=== PATIENT | female | born 1960 | race Caucasian/White ===

== ENCOUNTER 2017-01-14 18:41 | Emergency (ER) | payer OTHER ==
[~2017-01-14] VITALS: Ht 162.6 cm; Wt 103.0 kg
[~2017-01-14 18:41] MED LIST: D-ME473S18 PO; IBUP-1542 PO
[2017-01-14 18:43] VITALS: Ht 162.6 cm; Wt 103.0 kg
[2017-01-14] MEDS ORDERED: PROM5SYR2 PO (19:32)
[2017-01-14] MEDS ORDERED: AZIT250T94 PO (19:32)
--- NOTE | 2017-01-14 19:34 | ERD ---
ER Documentation Chief Complaint Date/Time DATE: 01/14/17 TIME: 19:32 Chief Complaint cough x 1 week, sore throat x 2 days HPI This is a 56-year-old female who presents with cough that she has had for 1 week. The cough is worse at night and is associated with some yellow to clear colored phlegm. She also admits to sore throat. She thinks he may have had a fever but she has not taken her temperature. She denies any nausea vomiting. Denies any chest pain or shortness of breath. She has tried pvit-aaf-wwenbri medications which did not help. ROS All systems reviewed and are negative except as per history of present illness. Medications Home Meds Active Scripts Promethazine HCl/Codeine (Prometh-Codein 6.25-10 mg/5 ml) 5 Ml Syrup, 5 ML PO QHS, #4 Prov:ESTELLA BOWEN PA-C 01/14/17 Azithromycin* (Zithromax*) 250 Mg Tablet, 250 MG PO .ZPACK DIRECTED, #6 TAB TAKE 500 MG (2 TABS) THE FIRST DAY THEN 250 MG (1 TAB) DAYS 2-5 Prov:ESTELLA BOWEN PA-C 01/14/17 Dextromethorphan Hb-Promethazine Hcl (Promethazine DM Syrup) 473 Ml Syrup, 5 ML PO Q6 Y for COUGH for 5 Days, ML Prov:VENKATA ZAMUDIO MD 07/04/16 Ibuprofen* (Motrin*) 600 Mg Tab, 600 MG PO Q6, #15 TAB Prov:VENKATA ZAMUDIO MD 07/04/16 Allergies Allergies: Coded Allergies: No Known Allergy (Unverified , 11/09/13) PMhx/Soc Medical and Surgical Hx: pt denies Medical Hx History of Surgery: Yes (RT SHOULDER) Anesthesia Reaction: No Hx Neurological Disorder: No Hx Respiratory Disorders: No Hx Cardiac Disorders: No Hx Psychiatric Problems: No Hx Miscellaneous Medical Probl: No Hx Alcohol Use: No Hx Substance Use: No Hx Tobacco Use: No Smoking Status: Never smoker FmHx Family History: No diabetes Physical Exam Vitals Vital Signs Date Time Temp Pulse Resp B/P Pulse Ox O2 Delivery O2 Flow Rate FiO2 01/14/17 18:43 98.6 99 20 132/85 98 Physical Exam General: well developed, well nourished, alert, nontoxic, no distress Head: normocephalic, atraumatic Eyes: PERRL, normal conjunctiva Neck: Supple, nontender, no lymphadenopathy, no midline tenderness Oropharynx: no tonsilar erythema or edema, uvula midline, no exudates, no kissing tonsils, no drooling Respiratory: Clear to auscaultation bilaterally, speaks in full sentences, no use of accesory muscles or labored breathing, no rales, ronchi, or wheezing Cardiovascular: RRR, No murmurs GI: soft, non tender, non distended, negative murphys sign Back: no midline tenderness, no step offs or bony abnormalities, sensation to light touch in tact Procedures/MDM Patient presents with cough and congestion for the past week. Her vitals are normal she is afebrile well-appearing. Her lungs are clear. I doubt she has pneumonia. She has tried dwzw-dly-ybggohi medication without relief. Discharge her with azithromycin and cough suppressant. Recommended this patient follow up with her primary care doctor within 48 hours or return to the emergency room for any worsening of symptoms. However this time I do believe there is suitable for outpatient management. I answered all their questions and they agreed with the plan and were discharged home. Departure Diagnosis: Primary Impression: Bronchitis Condition: Stable Patient Instructions: Bronchitis, Antiobiotic Treatment (Adult) Additional Instructions: Llame al doctor PEG y marisol delfino KATHLEEN PARA DENTRO DE 1-2 SAEZ.Dgale a la secretaria que nosotros le instruimos hacer esta kathleen.Avise o llame si porter condicin se empeora antes de la kathleen. Regresa aqui si peor o no mejor. ESTELLA BOWEN PA-C Jan 14, 2017 19:34
== END 2017-01-14 19:40 | disposition home or self-care (01) ==
LOC: FTE 18:41
DX: J20.9 Acute bronchitis, unspecified (principal)
CPT/HCPCS: 99284

== ENCOUNTER 2018-09-28 10:22 | Emergency (ER) | payer OTHER ==
[~2018-09-28] VITALS: Wt 94.2 kg
[~2018-09-28 10:22] MED LIST changes: +AZIT250T PO; +PROM5SYR2 PO
[2018-09-28] MEDS ORDERED: MECLIZINE 12.5 MG TAB PO ONE (13:30)
[2018-09-28] MEDS ORDERED: [UNRECOGNIZED DRUG - OTHER] PO (13:42)
[2018-09-28] MEDS ORDERED: [UNRECOGNIZED DRUG - OTHER] PO (13:47)
[2018-09-28] MEDS ORDERED: [UNRECOGNIZED DRUG - OTHER] PO (13:50)
[2018-09-28] MEDS ORDERED: OMEP40CA6 PO (13:51)
[2018-09-28] MEDS ORDERED: MECL12.574 PO (14:12)
--- NOTE | 2018-09-28 14:15 | ERD ---
ER Documentation Chief Complaint Chief Complaint DIZZINESS SINCE THIS MORNING WITH N/V HPI Patient is a 57-year-old female with history of hypertension and gastritis who presents with dizziness. She had dizziness and headache which started this morning. She had nausea and 2 episodes of vomiting. She feels like the room is spinning. Her headache is 7 out of 10 and she describes it as a throbbing radiating from the back to the front. She feels numbing and ringing in her hands. She says it is worse when she opens her eyes. She recently returned from a trip to [place]. She also complains of chronic abdominal pain for years. Her primary doctor is Dr. Zakiya Nolen. ROS All systems reviewed and are negative except as per history of present illness. Medications Home Meds Active Scripts Meclizine Hcl* (Antivert*) 12.5 Mg Tab, 25 MG PO Q6H PRN for DIZZINESS, #20 TAB Prov:DIEGO REYES MD 09/28/18 Reported Medications Omeprazole* (Omeprazole*) 40 Mg Capsule.dr, 40 MG PO DAILY, #30 CAP 09/28/18 [Esparen Enzim.] No Conflict Check, 1 TAB PO Q12H ESPAREN ENZIMATICO (SIMETICON 40MG) 09/28/18 [Fenazopiridina/Ac.] No Conflict Check, 1 TAB PO QHS ACIDO NALIDIXICO/FENAZOPIRIDINA 500/50MG 09/28/18 [Fenoverina 200MG] No Conflict Check, 200 MG PO Q3PM 09/28/18 Discontinued Scripts Promethazine HCl/Codeine (Prometh-Codein 6.25-10 mg/5 ml) 5 Ml Syrup, 5 ML PO QHS, #4 Prov:ESTELLA BOWEN PA-C 01/14/17 Azithromycin* (Zithromax*) 250 Mg Tablet, 250 MG PO .DarciPACK DIRECTED, #6 TAB TAKE 500 MG (2 TABS) THE FIRST DAY THEN 250 MG (1 TAB) DAYS 2-5 Prov:ESTELLA BOWEN PA-C 01/14/17 Dextromethorphan Hb-Promethazine Hcl (Promethazine DM Syrup) 473 Ml Syrup, 5 ML PO Q6 PRN for COUGH for 5 Days, ML Prov:VENKATA ZAMUDIO MD 07/04/16 Ibuprofen* (Motrin*) 600 Mg Tab, 600 MG PO Q6, #15 TAB Prov:VENKATA ZAMUDIO MD 07/04/16 Allergies Allergies: Coded Allergies: No Known Allergy (Unverified , 09/28/18) PMhx/Soc History of Surgery: Yes (RT SHOULDER) Anesthesia Reaction: No Hx Neurological Disorder: No Hx Respiratory Disorders: No Hx Cardiac Disorders: No Hx Psychiatric Problems: No Hx Miscellaneous Medical Probl: No Hx Alcohol Use: No Hx Substance Use: No Hx Tobacco Use: No Smoking Status: Never smoker FmHx Family History: diabetes Physical Exam Vitals Vital Signs Date Temp Pulse Resp B/P (MAP) Pulse Ox O2 O2 Flow FiO2 Time Delivery Rate 09/28/18 98.1 66 15 150/96 98 Room Air 14:34 (114) 09/28/18 98.6 14:27 09/28/18 98.1 62 20 149/82 98 Room Air 13:00 (104) 09/28/18 98.1 78 18 142/78 99 10:24 (99) Physical Exam Const: No acute distress Head: Atraumatic Eyes: Normal Conjunctiva ENT: Normal External Ears, Nose and Mouth. Neck: Full range of motion. No meningismus. Resp: Clear to auscultation bilaterally Cardio: Regular rate and rhythm, no murmurs Abd: Soft, non tender, non distended. Normal bowel sounds Skin: No petechiae or rashes Back: No midline or flank tenderness Ext: No cyanosis, or edema Neur: Awake and alert, cranial nerves II through XII intact, strength is 5 out of 5 in all 4 extremities, retort forker strength is equal, no slurred speech Psych: Normal Mood and Affect Result Diagram: 09/28/18 1248 09/28/18 1248 Results 24 hrs Laboratory Tests Test 09/28/18 12:48 White Blood Count 8.3 10^3/ul Red Blood Count 4.85 10^6/ul Hemoglobin 13.6 g/dl Hematocrit 40.8 % Mean Corpuscular Volume 84.1 fl Mean Corpuscular Hemoglobin 28.0 pg Mean Corpuscular Hemoglobin Concent 33.3 g/dl Red Cell Distribution Width 13.5 % Platelet Count 254 10^3/UL Mean Platelet Volume 11.6 fl Immature Granulocytes % 0.700 % Neutrophils % 78.0 % Lymphocytes % 16.5 % Monocytes % 4.2 % Eosinophils % 0.2 % Basophils % 0.4 % Nucleated Red Blood Cells % 0.0 /100WBC Immature Granulocytes # 0.060 10^3/ul Neutrophils # 6.4 10^3/ul Lymphocytes # 1.4 10^3/ul Monocytes # 0.4 10^3/ul Eosinophils # 0.0 10^3/ul Basophils # 0.0 10^3/ul Nucleated Red Blood Cells # 0.0 10^3/ul Sodium Level 141 mmol/L Potassium Level 3.8 mmol/L Chloride Level 106 mmol/L Carbon Dioxide Level 27 mmol/L Anion Gap 8 Blood Urea Nitrogen 12 mg/dl Creatinine 0.58 mg/dl Est Glomerular Filtrat Rate mL/min > 60 mL/min Glucose Level 109 mg/dl Calcium Level 8.9 mg/dl Troponin I < 0.012 ng/ml Current Medications Medications Dose Sig/Giovanna Start Time Status Last (Trade) Ordered Route PRN Stop Time Admin Dose Reason Admin Meclizine 25 mg ONCE ONCE 09/28/18 DC 09/28/18 HCl PO 13:30 09/28/18 14:01 (Antivert) 13:31 650 mg ONCE ONCE 09/28/18 DC 09/28/18 Acetaminophen PO 14:30 09/28/18 14:27 (Tylenol 14:31 Tab) 325 mg STK-MED 09/28/18 DC Acetaminophen ONCE .ROUTE 14:25 09/28/18 (Tylenol 14:26 Tab) Procedures/MDM EKG read by me: Rate/Rhythm: Regular rate and rhythm at a rate of 65 Intervals: Normal Impression: No evidence of ischemia or arrhythmia CT head negative per radiology. Patient is a 57-year-old female who presents with dizziness and headache. CT scan was negative. EKG was normal. At this point I doubt stroke, intra-cranial mass, or intracranial hemorrhage. I believe her symptoms are consistent with vertigo. The patient will be discharged with a prescription for meclizine. She will need close follow-up with her primary doctor however within 24-48 hours. She can return sooner for any worsening symptoms. Departure Diagnosis: Primary Impression: Vertigo Additional Impression: Dizziness Condition: Fair Patient Instructions: Dizziness, Unk Cause, Vertigo, Unspecified Referrals: ZAKIYA NOLEN MD Additional Instructions: Llame al doctor MAANA y marisol delfino KATHLEEN PARA DENTRO DE 1-2 SAEZ.Dgale a la secretaria que nosotros le instruimos hacer esta kathleen.Avise o llame si porter co ndicin se empeora antes de la kathleen. Regresa aqui si peor o no mejor. DIEGO REYES MD Sep 28, 2018 14:15
[2018-09-28] MEDS ORDERED: ACETAMINOPHEN 325 MG TAB ONE (14:25)
[2018-09-28] MEDS ORDERED: ACETAMINOPHEN 325 MG TAB PO ONE (14:30)
[2018-09-28 14:34] VITALS: BP 150/96; PULSE 66; RESP 15
== END 2018-09-28 14:35 | disposition home or self-care (01) ==
LOC: E/R 10:22
DX: R42 Dizziness and giddiness (principal); R40.2142 Coma scale, eyes open, spontaneous, at arrival to emergency department; R40.2362 Coma scale, best motor response, obeys commands, at arrival to emergency department; R40.2252 Coma scale, best verbal response, oriented, at arrival to emergency department; I10 Essential (primary) hypertension
CPT/HCPCS: 70450; 80048; 84484; 85025; 93005; Z7502; Z7610